=== PATIENT | female | born 1965 | race Caucasian/White ===

== ENCOUNTER 2016-06-13 01:41 | Emergency (ER) | payer OTHER ==
[2016-06-13] MEDS ORDERED: SODIUM CHLORIDE 1,000 ML IV STA (02:04)
[2016-06-13] MEDS ORDERED: KETOROLAC TROMETHAMINE 30 MG/1 ML VIAL IVPUSH ONE (02:04)
--- NOTE | 2016-06-13 02:06 | PDOC ---
History of Present Illness <Ilana Berry - Last Filed: 06/13/16 04:00> - General History Source: Patient Exam Limitations: No Limitations - History of Present Illness Initial Comments: 06/13/16 04:07 51 Y F SUDDEN ONSET RT FLANK PAIN RADIATED TO RLQ, N/V. NO FEVER NO PRIOR HX IN ED, IN MOD DISTRESS 2/2 PAIN. NO HEMATURIA OR DYSURIA. <Carlos Enrique Serrano - Last Filed: 06/13/16 04:10> - General Chief Complaint: Pain Stated Complaint: RIGHT SIDE PAIN Time Seen by Provider: 06/13/16 02:03 Past History <Ilana Berry - Last Filed: 06/13/16 04:00> - Past Medical History GI Disorders: Yes (DYSPHAGIA) - Psycho/Social/Smoking Cessation Hx Suicidal Ideation: No Smoking History: Current every day smoker Have you smoked in the past 12 months: Yes Number of Cigarettes Smoked Daily: 6 Information on smoking cessation initiated: No 'Breaking Loose' booklet given: 01/26/15 Hx Alcohol Use: No Drug/Substance Use Hx: No <Carlos Enrique Serrano - Last Filed: 06/13/16 04:10> - Past Medical History Allergies/Adverse Reactions: Allergies Allergy/AdvReac Type Severity Reaction Status Date / Time aspirin Allergy Severe Verified 06/13/16 01:47 codeine Allergy Severe Verified 06/13/16 01:47 Home Medications: Ambulatory Orders Ibuprofen 800 mg PO TID #20 tablet 06/13/16 Oxycodone HCl/Acetaminophen [Percocet 5-325 mg Tablet] 1 tab PO Q4H PRN #20 tablet MDD 2400 06/13/16 Tamsulosin HCl [Flomax] 0.4 mg PO DAILY #7 cap.er.24h 06/13/16 Review of Systems - Review of Systems Able to Perform ROS?: Yes Is the patient limited Welsh proficient: No Constitutional: No: Symptoms Reported Respiratory: No: Symptoms reported Cardiac (ROS): No: Symptoms Reported ABD/GI: No: Symptoms Reported : Yes: Symptoms Reported, See HPI All Other Systems: Reviewed and Negative <Carlos Enrique Serrano - Last Filed: 06/13/16 04:10> *Physical Exam - Vital Signs Last Vital Signs Temp Pulse Resp BP Pulse Ox 98.0 F 55 L 14 133/68 98 06/13/16 01:49 06/13/16 01:49 06/13/16 01:49 06/13/16 01:49 06/13/16 01:49 <Ilana Berry - Last Filed: 06/13/16 04:00> - Vital Signs Last Vital Signs Temp Pulse Resp BP Pulse Ox 98.0 F 55 L 14 133/68 98 06/13/16 01:49 06/13/16 01:49 06/13/16 01:49 06/13/16 01:49 06/13/16 01:49 - Physical Exam General Appearance: Yes: Nourished, Appropriately Dressed. No: Apparent Distress HEENT: positive: Normal ENT Inspection Respiratory/Chest: positive: Lungs Clear. negative: Respiratory Distress Cardiovascular: positive: Regular Rhythm, Regular Rate, Bradycardia Gastrointestinal/Abdominal: positive: Soft. negative: Tender Musculoskeletal: negative: CVA Tenderness Integumentary: positive: Normal Color Neurologic: positive: Fully Oriented, Alert, Normal Mood/Affect, Normal Response , Motor Strength 5/5 <Carlos Enrique Serrano - Last Filed: 06/13/16 04:10> ED Treatment Course - LABORATORY CBC & Chemistry Diagram: 06/13/16 02:10 06/13/16 02:10 - ADDITIONAL ORDERS Additional order review: Laboratory Results 06/13/16 02:10 Sodium 139 Potassium 3.9 Chloride 104 Carbon Dioxide 25 Anion Gap 10 BUN 20 H Creatinine 0.9 Random Glucose 120 H Calcium 9.8 06/13/16 02:10 RBC 4.92 MCV 87.8 MCHC 33.7 RDW 12.9 MPV 9.0 Neutrophils % 77.8 Lymphocytes % 15.3 Monocytes % 6.0 Eosinophils % 0.3 Basophils % 0.6 - RADIOLOGY Radiograph Interpretation: 06/13/16 04:01 Exam: Noncontrast CT abdomen and pelvis Reviewed by Imaging onion topper: Findings: The lung bases are clear. The upper abdominal viscera have a normal unenhanced appearance. The adrenal glands are unremarkable. The left kidney has a normal unenhanced appearance. The right kidney is hydronephrotic with proximal hydroureter. An obstructing 3.5 x 3.5 x 6 mm calculus is present in the proximal right ureter (image 62) The gastrointestinal tract does not appear obstructed. No thickened or dilated bowel is seen. There is no mesenteric infiltration. The uterus is anteverted. No adnexal masses are seen. The urinary bladder is unremarkable. No abdominal or pelvic adenopathy is seen. No lytic or blastic destructive osseous lesions are seen. Impression: Obstructing calculus in the proximal right ureter. - Medications Given in the ED: ED Medications Discontinued Medications Generic Name Dose Route Start Last Admin Trade Name Freq PRN Reason Stop Dose Admin Sodium Chloride 1,000 mls @ 1,000 mls/hr 06/13/16 02:04 06/13/16 02:26 Normal Saline - IV 06/13/16 03:03 1,000 mls/hr ASDIR STA Administration Ketorolac Tromethamine 30 mg 06/13/16 02:04 06/13/16 02:26 Toradol Injection - IVPUSH 06/13/16 02:05 30 mg ONCE ONE Administration <Ilana Berry - Last Filed: 06/13/16 04:00> - LABORATORY CBC & Chemistry Diagram: 06/13/16 02:10 06/13/16 02:10 <Carlos Enrique Serrano - Last Filed: 06/13/16 04:10> Progress Note - Progress Note Progress Note: RENAL COLIC (3X3X6) MILD HYDRO HAS TAKEN MOTRIN AND PERCOCET W/O ALLERGIC REACTION PAIN FREE IN ED D/C HOME <Carlos Enrique Serrano - Last Filed: 06/13/16 04:10> *DC/Admit/Observation/Transfer <Ilana Berry - Last Filed: 06/13/16 04:00> <Carlos Enrique Serrano - Last Filed: 06/13/16 04:10> Diagnosis at time of Disposition: Renal colic on right side - Discharge Dispostion Disposition: HOME Condition at time of disposition: Improved - Prescriptions Prescriptions: Tamsulosin HCl [Flomax] 0.4 mg PO DAILY #7 cap.er.24h Ibuprofen 800 mg PO TID #20 tablet Oxycodone HCl/Acetaminophen [Percocet 5-325 mg Tablet] 1 tab PO Q4H PRN #20 tablet MDD 2400 PRN Reason: Pain Level 1-5 - Referrals Referrals: Alysha Saravia MD [Primary Care Provider] - Call tomorrow - Patient Instructions Additional Instructions: PLENTY OF FLUIDS MOTRIN 800 MG 3 TIMES A DAY FOR 3 DAYS FLOMAX ONCE A DAY UNTIL STONE PASSES PERCOCET AT FIRST SIGN OF PAIN RETURN IF FEVER, VOMITING, SEVERE PAIN SEE YOUR UROLOGIST THIS WEEK STRAIN YOUR URINE TO CATCH THE STONE AND IF YOU DO BRING IT TO YOUR DOCTOR
[2016-06-13 02:13] VITALS: BP 133/68; PULSE 55; TEMP 98; BMI 19.5
[2016-06-13] MEDS ORDERED: KETOROLAC TROMETHAMINE 30 MG/1 ML VIAL ONE (02:21)
[2016-06-13 02:32] LABS: BASOPHIL 0.6 % (0-2.0); EOSINOPHIL 0.3 % (0-4.5); MCH 29.5 pg (25.7-33.7); MCHC 33.7 g/dl (32.0-36.0); MEAN CELL VOLUME 87.8 fl (80-96); NEUTROPHILS 77.8 % (42.8-82.8); PLATELET COUNT 297 K/MM3 (134-434); RDW 12.9 % (11.6-15.6); WHITE BLOOD COUNT 17.9 K/mm3 (4.0-10.0)
[2016-06-13 02:58] LABS: CALCIUM 9.8 mg/dL (8.5-10.1); CREATININE 0.9 mg/dL (0.55-1.02)
[2016-06-13] MEDS ORDERED: TAMSULOSIN HCL 0.4 MG CAP.ER.24H (FP) PO ONE (03:59)
== END 2016-06-13 04:30 | disposition home or self-care (01) ==
LOC: JER 01:41
PROC: 3E0333Z Introduction of Anti-inflammatory into Peripheral Vein, Percutaneous Approach (ICD-10-PCS; principal; 2016-06-13)
DX: N13.2 Hydronephrosis with renal and ureteral calculous obstruction (principal); F17.210 Nicotine dependence, cigarettes, uncomplicated
CPT/HCPCS: 36415; 74176-TC; 80048; 85025; 99283-25

== ENCOUNTER 2016-07-17 09:42 | Day surgery (SDC) | payer OTHER ==
[2016-07-13 12:00] VITALS: BMI 19.0
[2016-07-17] MEDS ORDERED: PROPOFOL 20 ML ONE ×3 (12:08)
[2016-07-17] MEDS ORDERED: LEVOFLOXACIN 500 MG IVPB 100 ML IVPB ONE ×2 (12:13→12:16)
[2016-07-17] MEDS ORDERED: MIDAZOLAM HCL 2 MG/2 ML SINGLE DOSE VIAL ONE ×4 (12:25→12:46)
[2016-07-17] MEDS ORDERED: LEVOFLOXACIN 500 MG PREMIX BAG IVPB ONE (12:26)
[2016-07-17] MEDS ORDERED: DEXAMETHASONE SOD PHOSPHATE 4 MG/1 ML VIAL ONE (12:32)
[2016-07-17] MEDS ORDERED: ONDANSETRON 4 MG/2 ML VIAL IVPUSH PRN (13:43)
[2016-07-17] MEDS ORDERED: ACETAMINOPHEN 500 MG TABLET (FP) PO PRN (13:43)
[2016-07-17] MEDS ORDERED: PROMETHAZINE HCL 25 MG/1 ML VIAL IVPUSH PRN (13:43)
[2016-07-17] MEDS ORDERED: LACTATED RINGERS SOLUTION 1,000 ML IV SCH (13:45)
[2016-07-17 13:46] VITALS: TEMP 98.1
--- NOTE | 2016-07-17 13:46 | OP ---
Operative Note - Note: Operative Date: 07/17/16 Pre-Operative Diagnosis: right renal stone Operation: right eswl Findings: 1.0 cm right lower pole stone Post-Operative Diagnosis: Same as Pre-op Surgeon: Jony Wang Anesthesia: General Operative Report Dictated: Yes
[2016-07-17 15:07] VITALS: BP 110/70; PULSE 62
--- NOTE | 2016-07-17 20:49 | OP ---
DATE OF OPERATION: 07/17/2016 PREOPERATIVE DIAGNOSIS: Right renal stone. POSTOPERATIVE DIAGNOSIS: Right renal stone. PROCEDURE: Right extracorporeal shock-wave lithotripsy. ATTENDING: Adryan Pineda MD ANESTHESIA: General. OPERATION: The patient was brought in the operating room, placed in the supine position on the operating room table. Ultrasonography and fluoroscopy were performed. A right ureteral stent was found to be in good position. A 1-cm right lower pole stone was identified. General anesthesia was then administered. Levaquin 500 mg was given intravenously for surgical prophylaxis. At this point, extracorporeal shock-wave lithotripsy was performed, 3000 impulses at 17 joules of power was administered to the stone under real-time ultrasonography and fluoroscopy, with excellent fragmentation of the kidney stone. There were no complications noted. The patient tolerated the procedure very well and disposition of the patient was to the recovery room. ADRYAN PINEDA M.D. [id number]
== END 2016-07-17 15:08 | disposition home or self-care (01) ==
LOC: JASU-SURG 09:42
PROVIDERS: ATTEND Urology
PROC: 0TF3XZZ Fragmentation in Right Kidney Pelvis, External Approach (ICD-10-PCS; principal; 2016-07-17 11:15)
DX: N20.0 Calculus of kidney (principal)
CPT/HCPCS: 84703; 94760

== ENCOUNTER 2016-11-08 22:24 | Emergency (ER) | payer OTHER ==
[2016-11-08 22:32] VITALS: BP 104/70; PULSE 69; TEMP 97.7; BMI 18.6
[2016-11-08 23:08] LABS: URINE APPEARANCE SLCLOUDY; URINE BILIRUBIN NEGATIVE (NEGATIVE); URINE COLOR YELLOW; URINE GLUCOSE (UA) NEGATIVE (NEGATIVE); URINE KETONE TRACE (NEGATIVE); URINE NITRITE NEGATIVE (NEGATIVE); URINE UROBILINOGEN 2.0 E.U/dl E.U./dl (0.2-1.0)
--- NOTE | 2016-11-08 23:10 | PDOC ---
History of Present Illness - General History Source: Patient <Rolly Moise - Last Filed: 11/09/16 00:36> - General History Source: Patient Exam Limitations: No Limitations - History of Present Illness Initial Comments: 11/08/16 23:25 The patient is a 51 year old female with significant past medical history of kidney stones s/p right ESWL (06/2016) who presents to the ED for sudden onset of right flank pain prior to arrival. Patient reports she was diagnosed with kidney stones in the right ureter s/p lithotripsy in 06/2016. She reports since then she has had no pain or pass any stones. States 5 days ago she felt a twinge in the right flank region that resolved on its own. Earlier this evening , she had a sudden onset of right flank pain and around 8pm she took oxycontin. Around 10pm her pain worsen and became severe radiating to the right groin region. She also reports associated lightheadedness and nausea, but no vomiting. Denies dysuria, hematuria, urgency, and frequency. The patient denies fever, chills, cough, SOB, chest pain, abdominal pain, and diarrhea. Allergies: aspirin, codeine Social History: No alcohol, tobacco, or drug use reported. Past Surgical History: Right ESWL (06/2016) PCP: Dr. Kashif Saravia <Ilana Berry - Last Filed: 11/09/16 00:37> - General Chief Complaint: Pain, Acute Stated Complaint: PAIN, ACUTE Time Seen by Provider: 11/08/16 22:57 Past History - Past Medical History GI Disorders: Yes (Reflux) - Psycho/Social/Smoking Cessation Hx Suicidal Ideation: No Smoking History: Never smoked Have you smoked in the past 12 months: Yes Number of Cigarettes Smoked Daily: 6 'Breaking Loose' booklet given: 01/26/15 Hx Alcohol Use: No Drug/Substance Use Hx: No Substance Use Type: Marijuana Hx Substance Use Treatment: No <Rolly Moise - Last Filed: 11/09/16 00:36> <Ilana Berry - Last Filed: 11/09/16 00:37> - Past Medical History Allergies/Adverse Reactions: Allergies Allergy/AdvReac Type Severity Reaction Status Date / Time aspirin Allergy Severe Verified 11/08/16 22:30 codeine Allergy Severe Verified 11/08/16 22:30 Home Medications: Ambulatory Orders Calcium Carb, Citrate/Vit D3 [Calcium + D3 ER Tablet] 1 each PO DAILY 07/13/16 Estradiol/Norethindrone Acet [Estradiol-Noreth 1-0.5 mg Tab] 1 each PO DAILY Oxycodone HCl [Roxicodone] 5 mg PO ONCE 11/08/16 Levofloxacin [Levaquin -] 500 mg PO DAILY #7 tablet 11/09/16 Review of Systems - Review of Systems Able to Perform ROS?: Yes Comments:: 11/08/16 23:25 CONSTITUTIONAL: Absent: fever, no chills, no fatigue EYES: Absent: visual changes ENT: Absent: ear pain, no sore throat CARDIOVASCULAR: +lightheadedness Absent: chest pain, no palpitations RESPIRATORY: Absent: cough, no SOB GI: +nausea Absent: abdominal pain, no vomiting, no constipation, no diarrhea GENITOURINARY: +right flank pain radiating to the right groin region Absent: dysuria, no frequency, no hematuria MUSCULOSKELETAL: Absent: back pain, no arthralgia, no myalgia SKIN: Absent: rash NEURO: Absent: headache <Ilana Berry - Last Filed: 11/09/16 00:37> *Physical Exam - Vital Signs Last Vital Signs Temp Pulse Resp BP Pulse Ox 97.7 F 69 18 104/70 100 11/08/16 22:31 11/08/16 22:31 11/08/16 22:31 11/08/16 22:31 11/08/16 22:31 <Rolly Moise - Last Filed: 11/09/16 00:36> - Vital Signs Last Vital Signs Temp Pulse Resp BP Pulse Ox 97.7 F 69 18 104/70 100 11/08/16 22:31 11/08/16 22:31 11/08/16 22:31 11/08/16 22:31 11/08/16 22:31 - Physical Exam Comments: 11/08/16 23:25 GENERAL: Well-appearing, well-nourished. No apparent distress. HEENT: Normocephalic, atraumatic. PERRL, EOM intact. CARDIOVASCULAR: Normal S1, S2. Regular rate and rhythm. PULMONARY: Clear to auscultation bilaterally. ABDOMEN: Soft, non-distended, non-tender. EXTREMITIES: Normal ROM in all four extremities. No gross deformities. MUSCULOSKELETAL: Right flank tenderness SKIN: Warm, dry. No rash NEUROLOGICAL: No focal neurological deficits. <Ilana Berry - Last Filed: 11/09/16 00:37> ED Treatment Course - ADDITIONAL ORDERS Additional order review: Laboratory Results 11/08/16 22:43 Urine Color Yellow Urine Appearance Slcloudy Urine pH 7.0 Urine Protein 2+ H Urine Glucose (UA) Negative Urine Ketones Trace H Urine Blood 1+ H Urine Nitrite Negative Urine Bilirubin Negative Urine Urobilinogen 2.0 e.u/dl H Ur Leukocyte Esterase 1+ H - RADIOLOGY Radiograph Interpretation: 11/09/16 00:37 EXAM: CT abdomen and pelvis noncontrast Reviewed by Imaging manager personnel selection: FINDINGS: The kidneys are normal in size without hydronephrosis. There are multiple punctate nonobstructing stones in the lower pole of the right kidney and a punctate nonobstructing stone in the lower pole of the left kidney. There are no stones seen along the course of the ureters or within the bladder. The unenhanced upper abdominal visceral organs are otherwise unremarkable Tiny umbilical hernia containing fat There is no bowel distention The appendix and terminal ileum are unremarkable There are a few sigmoid diverticula without evidence of acute diverticulitis No free air or free fluid <Ilana Berry - Last Filed: 11/09/16 00:37> Medical Decision Making - Medical Decision Making 11/09/16 00:34 Dr. Moise: The scribe's documentation has been prepared under my direction and personally reviewed by me in its entirery. I confirm that the note above accurately reflects all work, treatment, procedures, and medical decision making performed by me. <Rolly Moise - Last Filed: 11/09/16 00:36> *DC/Admit/Observation/Transfer - Discharge Dispostion Admit: No <Rolly Moise - Last Filed: 11/09/16 00:36> - Attestations Scribe Attestion: 11/08/16 23:26 Documentation prepared by Ilana Berry, acting as medical device engineer for Rolly Moise MD/. <Bharrat,Ilana - Last Filed: 11/09/16 00:37> Diagnosis at time of Disposition: Renal colic on right side - Discharge Dispostion Disposition: HOME Condition at time of disposition: Stable - Prescriptions Prescriptions: Levofloxacin [Levaquin -] 500 mg PO DAILY #7 tablet - Referrals Referrals: Kashif Saravia MD [Primary Care Provider] - Jony Wang MD [Staff Physician] - - Patient Instructions Printed Discharge Instructions: DI for Kidney Stones Additional Instructions: Please follow up with your urologist as soon as possible. TAke medication as directed.
[2016-11-08 23:19] LABS: URINE BLOOD 1+ (NEGATIVE); URINE LEUK ESTERASE 1+ (NEGATIVE); URINE PROTEIN 2+ (NEGATIVE)
[2016-11-08 23:21] LABS: URINE BACTERIA RARE /hpf (NONE SEEN); URINE MUCUS FEW; URINE RBC 5 /hpf (0-3); URINE WBC 18 /hpf (3-5)
[2016-11-09] MEDS ORDERED: LEVOFLOXACIN 500 MG TABLET (FP) PO ONE (00:34)
[2016-11-09] MEDS ORDERED: LEVOFLOXACIN 500 MG TABLET (FP) ONE (00:39)
== END 2016-11-09 00:42 | disposition home or self-care (01) ==
LOC: JER 22:24
DX: N20.0 Calculus of kidney (principal)
CPT/HCPCS: 74176; 81003; 81015; 87086; 99282-25

== ENCOUNTER 2016-12-18 09:57 | Day surgery (SDC) | payer OTHER ==
[2016-12-15 09:05] VITALS: BMI 19.2
[2016-12-18] MEDS ORDERED: MIDAZOLAM HCL 2 MG/2 ML SINGLE DOSE VIAL ONE ×4 (12:24→12:45)
[2016-12-18] MEDS ORDERED: LEVOFLOXACIN 500 MG PREMIX BAG IVPB ONE (12:26)
[2016-12-18] MEDS ORDERED: LEVOFLOXACIN 500 MG IVPB 100 ML IVPB ONE (12:30)
[2016-12-18] MEDS ORDERED: DEXAMETHASONE SOD PHOSPHATE 4 MG/1 ML VIAL ONE (12:43)
[2016-12-18] MEDS ORDERED: KETOROLAC TROMETHAMINE 30 MG/1 ML VIAL ONE (12:43)
[2016-12-18] MEDS ORDERED: ONDANSETRON 4 MG/2 ML VIAL IVPUSH PRN (13:08)
[2016-12-18 14:39] VITALS: BP 90/56; PULSE 50
[2016-12-18 14:44] VITALS: TEMP 98
--- NOTE | 2016-12-18 15:33 | OP ---
Operative Note - Note: Operative Date: 12/18/16 Pre-Operative Diagnosis: left renal stone Operation: left eswl Findings: 5 mm left mid pole renal stone Post-Operative Diagnosis: Same as Pre-op Surgeon: Jony Wang
--- NOTE | 2016-12-19 08:58 | OP ---
DATE OF OPERATION: 12/18/2016 PREOPERATIVE DIAGNOSIS: Left renal stone. POSTOPERATIVE DIAGNOSIS: Left renal stone. PROCEDURE: Left extracorporeal shock wave lithotripsy. ATTENDING PHYSICIAN: Adryan Pineda MD ANESTHESIA: General. DESCRIPTION OF OPERATION: Patient was brought in the operating room, placed in supine position on the operating room table. Ultrasonography and fluoroscopy were performed. A 5-mm left mid-pole stone was identified. General anesthesia and antibiotics were then administered. Extracorporeal shock wave lithotripsy was commenced; 2500 impulses at 18 joules of power were administered to the stone. Excellent fragmentation was noted under real-time ultrasonography and fluoroscopy. DISPOSITION: The patient went to recovery room. ADRYAN PINEDA M.D. [id number]
== END 2016-12-18 14:35 | disposition home or self-care (01) ==
LOC: JASU-SURG 09:57
PROVIDERS: ATTEND Urology
PROC: 0TF4XZZ Fragmentation in Left Kidney Pelvis, External Approach (ICD-10-PCS; principal; 2016-12-18 12:00)
DX: N20.0 Calculus of kidney (principal)
CPT/HCPCS: 84703; 94760

== ENCOUNTER 2019-02-24 08:56 | Emergency (ER) | payer OTHER ==
[2019-02-24 09:02] VITALS: BP 107/74; PULSE 65; TEMP 97.5; BMI 20.1
[2019-02-24] MEDS ORDERED: CYCLOBENZAPRINE HCL 10 MG TABLET (FP) PO ONE (09:33)
[2019-02-24] MEDS ORDERED: ACETAMINOPHEN 160 MG/5 ML *Children Solution PO ONE (09:33)
[2019-02-24] MEDS ORDERED: KETOROLAC TROMETHAMINE 60 MG/2 ML VIAL IM ONE (09:35)
--- NOTE | 2019-02-24 09:42 | PDOC ---
History of Present Illness - General Chief Complaint: Back Pain Stated Complaint: BACK PAIN Time Seen by Provider: 02/24/19 09:17 Past History - Past Medical History Allergies/Adverse Reactions: Allergies Allergy/AdvReac Type Severity Reaction Status Date / Time aspirin Allergy Severe Verified 02/24/19 09:02 codeine Allergy Severe Verified 02/24/19 09:02 Home Medications: Ambulatory Orders Calcium Carb, Citrate/Vit D3 [Calcium + D3 ER Tablet] 1 each PO DAILY 07/13/16 Estradiol/Norethindrone Acet [Estradiol-Noreth 1-0.5 mg Tab] 1 each PO DAILY Acetaminophen [Tylenol -] 1,000 mg PO Q6H #30 tablet 02/24/19 Cyclobenzaprine HCl [Flexeril 10 mg] 10 mg PO HS #9 tablet 02/24/19 COPD: No GI Disorders: Yes (Reflux) - Psycho Social/Smoking Cessation Hx Smoking History: Current some day smoker Have you smoked in the past 12 months: Yes Number of Cigarettes Smoked Daily: 3 Information on smoking cessation initiated: Yes 'Breaking Loose' booklet given: 01/26/15 Hx Alcohol Use: No Drug/Substance Use Hx: No Substance Use Type: Marijuana Hx Substance Use Treatment: No *Physical Exam - Vital Signs Last Vital Signs Temp Pulse Resp BP Pulse Ox 97.5 F L 65 17 107/74 99 02/24/19 08:59 02/24/19 08:59 02/24/19 08:59 02/24/19 08:59 02/24/19 08:59 Medical Decision Making - Medical Decision Making 02/24/19 09:35 54-year-old female history of skin cancer, s/p resection, here with right lower back pain that started 4 days ago after getting out of bed. Has been persistent since, worse with certain movement and weight bearing and not relieved with omrj-gip-[id number] meds. No dysuria, hematuria, nausea, vomiting, fever or chills lower extremity sensory changes weakness bowel or bladder incontinence or saddle anesthesia. See exam M/l back strain vs spasm No neuro sxs No infectious sxs No trauma -pain control in ED and dc w/ same -PMD f/u as needed Discharge - Discharge Information Problems reviewed: Yes Clinical Impression/Diagnosis: Lower back pain Qualifiers: Chronicity: acute Back pain laterality: right Sciatica presence: without sciatica Qualified Code(s): M54.5 - Low back pain - Additional Discharge Information Prescriptions: Acetaminophen [Tylenol -] 1,000 mg PO Q6H #30 tablet Cyclobenzaprine HCl [Flexeril 10 mg] 10 mg PO HS #9 tablet - Follow up/Referral Referrals: Kashif Saravia MD [Primary Care Provider] - - Patient Discharge Instructions Patient Printed Discharge Instructions: Low Back Pain Additional Instructions: Take medication as directed and follow-up with your PMD if pain persists - Post Discharge Activity
[2019-02-24] MEDS ORDERED: KETOROLAC TROMETHAMINE 60 MG/2 ML VIAL ONE (09:58)
[2019-02-24] MEDS ORDERED: CYCLOBENZAPRINE HCL 10 MG TABLET (FP) ONE (09:59)
== END 2019-02-24 10:10 | disposition home or self-care (01) ==
LOC: JERFT 08:56
PROC: 3E0233Z Introduction of Anti-inflammatory into Muscle, Percutaneous Approach (ICD-10-PCS; principal; 2019-02-24)
DX: M54.5 Low back pain (principal); F17.200 Nicotine dependence, unspecified, uncomplicated; Z87.19 Personal history of other diseases of the digestive system; Z85.828 Personal history of other malignant neoplasm of skin; Z88.5 Allergy status to narcotic agent; Z88.6 Allergy status to analgesic agent
CPT/HCPCS: 99281-25

== ENCOUNTER 2019-05-28 06:51 | Day surgery (SDC) | payer OTHER ==
[2019-05-22 15:40] VITALS: BMI 20.5
[2019-05-28] MEDS ORDERED: ROPIVACAINE HCL 0.5% 30ML VIAL ONE (08:23)
[2019-05-28] MEDS ORDERED: MIDAZOLAM HCL 2 MG/2 ML SINGLE DOSE VIAL ONE ×3 (08:25→08:31)
[2019-05-28] MEDS ORDERED: PROPOFOL 0 ML ONE (08:31)
[2019-05-28] MEDS ORDERED: PROPOFOL 20 ML ONE ×2 (08:31→09:51)
--- NOTE | 2019-05-28 08:35 | HP ---
Satellite H - Chief Complaint Chief Complaint: right shoulder pain - Past Medical History Allergies/Adverse Reactions: Allergies Allergy/AdvReac Type Severity Reaction Status Date / Time aspirin Allergy Severe Verified 05/22/19 15:30 codeine Allergy Severe Verified 05/22/19 15:30 ...LMP: 07/12/16 - Current Medications Current Medications: Home Medications Medication Instructions Recorded Estradiol/Norethindrone Acet 1 each PO DAILY 07/17/16 [Estradiol-Noreth 1-0.5 mg Tab] Tramadol HCl [Ultram] 50 mg PO ONCE PRN 05/22/19 Hydrocodone/Acetaminophen 1 each PO Q6H #40 tablet MDD 4 05/28/19 [Hydrocodone-Acetamin 5-325 mg] Satellite Physical Exam - Physical Examination Vital Signs: Vital Signs Period Temp Pulse Resp BP Sys/Rizzo Pulse Ox Last 24 Hr 98.0 F 63 20 107/75 98 General Appearance: Well Nourished, Well Developed, Alert & Oriented x3 ENT: Clear Lung: Normal air movement Extremities: Other (right shoulder- + ttp, decr rom, + empty can, + neer, + simms, nvi, MRI + rct) Neurological: Intact, Alert, Oriented Satellite Impression/Plan - Impression/Plan Impression: right shoulder rct Operative Procedure: right shoulder arthroscopy with EPIFANIO LOPEZ Date to be Performed: 05/28/19
[2019-05-28] MEDS ORDERED: ONDANSETRON 4 MG/2 ML VIAL IVPUSH PRN (08:51)
[2019-05-28] MEDS ORDERED: oxyCODONE HCL 5 MG TABLET PO PRN ×2 (08:51)
[2019-05-28] MEDS ORDERED: KETOROLAC TROMETHAMINE 30 MG/1 ML VIAL ONE (08:54)
[2019-05-28] MEDS ORDERED: ceFAZolin SODIUM 1 GM VIAL ONE (08:54)
[2019-05-28] MEDS ORDERED: DEXAMETHASONE SOD PHOSPHATE 4 MG/1 ML VIAL ONE (08:54)
[2019-05-28] MEDS ORDERED: LACTATED RINGERS SOLUTION 1,000 ML IV SCH (09:00)
[2019-05-28] MEDS ORDERED: ceFAZolin SODIUM 1 GM VIAL IVPB ONE (09:20)
--- NOTE | 2019-05-28 10:00 | OP ---
Operative Note - Note: Operative Date: 05/28/19 Pre-Operative Diagnosis: right shoulder impingement syndrome Operation: right shoulder arthroscopy, subacromial decompression, distal clavicle excision, manipulation under anesthesia Post-Operative Diagnosis: Same as Pre-op Surgeon: Luis Alberto Franco Automation Software Engineer: Andrew Mccullough Anesthesiologist/SALESPERSON TRAILERS AND MOTOR HOMES: Cal Hooper Specimens Removed: shavings Estimated Blood Loss (mls): 0 Drains, Volume Out (mls): 0 Blood Volume Replaced (mls): 0 Fluid Volume Replaced (mls): 500 Operative Report Dictated: Yes
[2019-05-28] MEDS ORDERED: GLYCOPYRROLATE 0.2 MG/1 ML VIAL ONE (11:03)
[2019-05-28] MEDS ORDERED: GLYCOPYRROLATE 1 MG/5 ML VIAL IVPB ONE (11:30)
--- NOTE | 2019-05-28 13:03 | OP ---
DATE OF OPERATION: DATE OF DICTATION: 05/28/2019 PREOPERATIVE DIAGNOSIS: Right shoulder impingement syndrome. POSTOPERATIVE DIAGNOSIS: Right shoulder impingement syndrome, adhesive capsulitis. PROCEDURE: Right shoulder arthroscopy, subacromial decompression, distal clavicle excision, and manipulation under anesthesia. SURGEON: Luis Alberto Wang MD ENTRY LEVEL ACCOUNTING CLERK: RANDY Rao ANESTHESIA: , right interscalene block with LMA anesthesia. DRAINS: None. COMPLICATIONS: None. SPECIMEN: Arthroscopic shavings. BLOOD LOSS: None. BLOOD GIVEN: None. FLUID REPLACEMENT: 500 mL. INDICATIONS: This patient is a 54-year-old female with a preoperative diagnosis of right shoulder pain, impingement syndrome, and a possible rotator cuff tear. After understanding the potential risks, complications, alternatives, and benefits to surgery versus nonsurgical treatment, the patient elected to undergo this procedure. DESCRIPTION OF PROCEDURE: Patient had a right interscalene block performed. LMA anesthesia was induced. She was placed into the beach chair position with ample padding throughout. First, we did a manipulation under anesthesia. I was surprised at the degree of adhesive capsulitis that was revealed once she was under anesthesia. I could only passively forward flex her and abduct her to about 75 degrees. Beyond that, she was extremely stiff. She also only had about 10 degrees of external rotation, and cross arm abduction was very tight. After a series of maneuvers in all of these planes, we were able to fully move her right arm. I was able to clearly feel some stretching of soft tissue after which range of motion dramatically improved. At the end, she had full, fluid range of motion. The right upper extremity was then prepped and draped in a sterile fashion. The bony landmarks were marked out with a marking pen. A posterior portal was established. Diagnostic glenohumeral arthroscopy was performed. There was a small amount of blood. There was evacuated. Everything else looked good. There was no rotator cuff tear. The patient had a normal "bubble test." The biceps tendon, labrum, and glenohumeral joint all looked good. Next, our attention turned to the subacromial space. Patient had a lot of inflammatory bursitis. A lateral portal was established under direct visualization using a spinal needle. A green cannula was introduced into the subacromial space. A soft tissue bursectomy was performed with an ArthroCare wand. This revealed a moderate sized subacromial spur and a moderate sized distal clavicular spur. Both were taken down with a 5.5-mm oval bur, finetuned, and reversed, and then with a straight shaver. Once the subacromial decompression and distal clavicle excision were done, I was able to see the top surface of the rotator cuff. I moved the arm. There was no point of impingement on the undersurface of the acromion or clavicle. There was no rotator cuff tear. The area was copiously irrigated and washed out, again inspected. Again nothing was found. Bursectomy was completed. The instrumentation was removed. The excess saline removed. The arthroscopy portal was closed with 3-0 nylon sutures washed, dried, covered with Aquacel dressing. The patient's arm was put into a sling. LUIS ALBERTO WANG M.D. MARIA [id number]
[2019-05-28 13:33] VITALS: BP 103/78; PULSE 73; TEMP 97.8
--- NOTE | 2019-05-30 15:52 | PATH ---
Surgical Pathology Report Patient Name: NAJMA DAVIS Med. Rec. #: [id number] /Age/Gender: 1965 (Age: 54) / F Account: [id number] Location: [facility] SUR[facility]ICAL Taken: 05/28/2019 Received: 05/28/2019 Reported: 05/30/2019 Physicians: Luis Alberto Franco M.D. Specimen(s) Received RIGHT SHOULDER SHAVINGS Clinical History Right shoulder impingement syndrome Final Diagnosis SHOULDER SHAVINGS, RIGHT, ARTHROSCOPY: FRAGMENTS OF BENIGN BONE, DENSE FIBROCONNECTIVE TISSUE, ADIPOSE TISSUE, AND SKELETAL MUSCLE. Electronically Signed Dina Alex M.D. Gross Description Received in formalin, labeled "right shoulder shavings," is a 2.2 x 1.5 x 0.3 cm. aggregate of aguiar-yellow soft tissue fragments. The specimen is entirely submitted in one cassette. 05/29/2019 saudi05/29/2019
== END 2019-05-28 13:50 | disposition home or self-care (01) ==
LOC: JASU-SURG 06:51
PROVIDERS: ATTEND Orthopaedic Surgery
PROC: 0PB94ZZ Excision of Right Clavicle, Percutaneous Endoscopic Approach (ICD-10-PCS; 2019-05-28)
PROC: 0RNJ4ZZ Release Right Shoulder Joint, Percutaneous Endoscopic Approach (ICD-10-PCS; principal; 2019-05-28 09:00)
DX: M75.41 Impingement syndrome of right shoulder (principal); M75.01 Adhesive capsulitis of right shoulder
CPT/HCPCS: 88304-TC; 94760

== ENCOUNTER 2022-05-01 04:34 | Day surgery (SDC) | payer OTHER ==
[2022-04-27 16:09] VITALS: BMI 21.4
[2022-05-01] MEDS ORDERED: DEXAMETHASONE SOD PHOSPHATE 10 MG/1 ML VIAL ONE (12:12)
[2022-05-01] MEDS ORDERED: BUPIVACAINE HCL/PF 0.5% (5MG/ML) 10 ML VIAL ONE (12:12)
[2022-05-01] MEDS ORDERED: ACETAMINOPHEN INJECTION 100 ML IVPB ONE (12:12)
[2022-05-01] MEDS ORDERED: ONDANSETRON 4 MG/2 ML VIAL IVPUSH PRN (12:24)
[2022-05-01] MEDS ORDERED: ACETAMINOPHEN 325 MG TABLET (FP) PO PRN (12:24)
[2022-05-01] MEDS ORDERED: oxyCODONE HCL 5 MG TABLET PO PRN ×2 (12:24)
[2022-05-01] MEDS ORDERED: FENTANYL CITRATE/PF 50 MCG/ML VIAL ONE (12:29)
[2022-05-01] MEDS ORDERED: MIDAZOLAM HCL 2 MG/2 ML SINGLE DOSE VIAL ONE (12:29)
[2022-05-01] MEDS ORDERED: LACTATED RINGERS SOLUTION 1,000 ML IV SCH (12:30)
[2022-05-01] MEDS ORDERED: PROPOFOL 20 ML ONE (12:58)
[2022-05-01] MEDS ORDERED: ceFAZolin SODIUM 1 GM VIAL ONE ×2 (13:10)
[2022-05-01] MEDS ORDERED: ceFAZolin SODIUM 1 GM VIAL IVPB ONE (13:15)
[2022-05-01 15:44] VITALS: BP 116/86; PULSE 60; RESP 18; TEMP 98
== END 2022-05-01 15:40 | disposition home or self-care (01) ==
LOC: JASU-SURG 04:34
PROVIDERS: ATTEND Orthopaedic Surgery
PROC: 0RNK4ZZ Release Left Shoulder Joint, Percutaneous Endoscopic Approach (ICD-10-PCS; principal; 2022-05-01 11:30)
DX: M75.42 Impingement syndrome of left shoulder (principal); M75.52 Bursitis of left shoulder
CPT/HCPCS: 94760; J1100

== ENCOUNTER 2022-07-24 14:27 | Emergency (ER) | payer OTHER ==
[2022-07-24 14:45] VITALS: BP 123/79; PULSE 93; RESP 17; TEMP 99.7; BMI 21.4
[2022-07-24] MEDS ORDERED: FAMOTIDINE 20 MG TABLET PO ONE (16:44)
[2022-07-24] MEDS ORDERED: ACETAMINOPHEN 325 MG TABLET (FP) PO ONE (16:45)
[2022-07-24] MEDS ORDERED: ACETAMINOPHEN 325 MG TABLET (FP) ONE (17:16)
[2022-07-24] MEDS ORDERED: FAMOTIDINE 20 MG TABLET ONE (17:16)
[2022-07-24 17:21] LABS: BASO % 0.4 % (0-2.0); HEMATOCRIT 42.8 % (32.4-45.2); HEMOGLOBIN 14.1 GM/dL (10.7-15.3); LYMPH % 4.5 % (8-40); MEAN CELL VOLUME 84.9 fl (80-96); MEAN PLT VOLUME 8.5 fl (7.5-11.1); MONO % 11.2 % (3.8-10.2); NEUT % 83.9 % (42.8-82.8); PLATELET COUNT 239 10^3/uL (134-434); RBC 5.04 M/mm3 (3.60-5.2); WHITE BLOOD COUNT 7.8 K/mm3 (4.0-10.0)
[2022-07-24 17:42] LABS: ALBUMIN 3.8 g/dl (3.4-5.0); CALCIUM 9.3 mg/dL (8.5-10.1)
[2022-07-24 17:43] LABS: BLOOD UREA NITROGEN 10.9 mg/dL (7-18)
[2022-07-24 17:45] LABS: CREATININE 0.8 mg/dL (0.55-1.3)
[2022-07-24 17:46] LABS: BILIRUBIN,TOTAL 0.4 mg/dL (0.2-1); TOT PROT 7.1 g/dl (6.4-8.2)
== END 2022-07-24 18:31 | disposition home or self-care (01) ==
LOC: JER 14:27
DX: U07.1 COVID-19 (principal)
CPT/HCPCS: 0241U-QW; 36415; 76705-TC; 80053; 83690; 84484; 85025; 87086; 93005; 93010; 99285-25